=== PATIENT | female | born 1955 | race Caucasian/White ===

== ENCOUNTER 2023-04-12 16:04 | Emergency (ER) | payer MEDICARE, SELFPAY ==
[2023-04-12 16:20] VITALS: BP 138/83; PULSE 78; RESP 18; TEMP 36.6; O2SAT 98; BMI 37.8
--- NOTE | 2023-04-12 16:45 | ED.GENADULT ---
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 No trauma, no injury, no radicular symptoms, she has noticed some stiffness or neck that does not seem to resolve well and she presents to the ER. She has no bowel or bladder changes fever chills perineal numbness. She has had history of cirrhosis from some medication she was on the past. She is diabetic. She is not on blood thinners. As mentioned she has been in no trauma no falls no injuries. Related Data Previous Rx's Medication Instructions Recorded methylprednisolone 4 mg tablets in See Rx Instructions PO .COMPLEX 04/12/23 a dose pack (Medrol (Art)) #21 ea Allergies Allergy/AdvReac Type Severity Reaction Status Date / Time metformin Allergy Verified 04/12/23 16:25 Review of Systems Status of ROS: Reports: 6 or more systems reviewed and unremarkable except as noted in History and below Exam Narrative: Exam Narrative: Objective: Patient's vital signs unremarkable in general she is in no apparent distress She has very limited range of motion to flexion extension lateral rotation and bending due to tenderness in her neck and trapezius muscles bilaterally. Interestingly no midline tenderness to her neck Normal strength sensation upper extremities, she has no involvement or changes in her upper extremities. Const: Vital Signs, click to edit/add: Vital Signs - 24 hr 04/12/23 16:20 Temperature 97.9 F Pulse Rate [Right Pulse Oximeter] 78 Respiratory Rate 18 Blood Pressure [Ri ght Upper Arm] 138/83 Pulse Oximetry 98 Oxygen Delivery Me thod Room Air Course Vital Signs Vital signs: Initial Vital Signs Temperature 97.9 F 04/12/23 16:20 Temperature Source Temporal Artery Scan 04/12/23 16:20 Pulse Rate 78 04/12/23 16:20 Respiratory Rate 18 04/12/23 16:20 Blood Pressure 138/83 04/12/23 16:20 Blood Pressure Mean 101 04/12/23 16:20 Blood Pressure Position Sitting 04/12/23 16:20 Pulse Oximetry 98 04/12/23 16:20 Oxygen Delivery Method Room Air 04/12/23 16:20 Vital Signs Temperature 97.9 F 04/12/23 16:20 Pulse Rate 78 04/12/23 16:20 Respiratory Rate 18 04/12/23 16:20 Blood Pressure 138/83 04/12/23 16:20 Pulse Oximetry 98 04/12/23 16:20 Oxygen Delivery Method Room Air 04/12/23 16:20 Temperature 97.9 F 04/12/23 16:20 Pulse Rate 78 04/12/23 16:20 Respiratory Rate 18 04/12/23 16:20 Blood Pressure 138/83 04/12/23 16:20 Pulse Oximetry 98 04/12/23 16:20 Oxygen Delivery Method Room Air 04/12/23 16:20 Medical Decision Making MDM Narrative Medical decision making narrative: [age] year white female with cervical spine pain trapezius muscle pain, likely muscle spasm. No evidence of radicular pain at this time. No trauma. At this time I do not think imaging would be useful, but I would recommend she consider a Medrol Dosepak, Advil 2-3 twice a day for the next several days, icing 10 minutes 5 times a day the neck, gentle range of motion. She is not improving over the next week then recommend follow-up check with her primary care doctor, return to ED sooner problems or concerns. Would limit her time on the computer or with any flexed neck position. She agrees to follow up as indicated. A prednisone 50 mg given now and then she gets are 20 b.i.d. for the next 3 days. As mention adjust insulin dose to blood sugar given the prednisone. Discharge Plan Discharge Clinical Impression: Strain of neck muscle Patient Disposition: Home w/ Parent or Adult Condition: Stable Additional Instructions: Ice to the neck region for 10 minutes 5 times a day for the next several days, Advil 2 tablets 2 to 3 times a day for the next 5-7 days, Medrol Dosepak as prescribed. The Medrol make your blood sugar go high so be ready to adjust her insulin dose. Recheck with regular doctor next week or so if not improving for consideration of physical therapy or imaging such as CT scanning of the neck. Activity Level: Light activity Discharge Diet: Diabetic Prescriptions: New methylprednisolone [Medrol (Art)] 4 mg tablets,dose pack See Rx Instructions .ROUTE .COMPLEX Qty: 21 0RF Rx Instructions: orally per package directions Follow Up/Referrals: Provider,Not a Local [Primary Care Provider] - Stand Alone Forms: MyHealth Info Instructions
== END 2023-04-12 17:06 | disposition home or self-care (01) ==
LOC: ED 16:54
PROVIDERS: Emergency Provider Family Medicine
DX: S16.1XXA Strain of muscle, fascia and tendon at neck level, initial encounter (principal)
CPT/HCPCS: 99283